=== PATIENT | female | born 1960 | race Caucasian/White ===

== ENCOUNTER 2020-09-21 14:34 | Emergency (ER) | payer SELFPAY ==
[~2020-09-21] VITALS: Ht 154.9 cm; Wt 75.3 kg
[2020-09-21 14:51] VITALS: BP 121/78
[2020-09-21] MEDS ORDERED: ACETAMINOPHEN EXTRA STRENGTH 500 MG TAB PO ONE (15:45)
[2020-09-21] MEDS ORDERED: ACETAMINOPHEN EXTRA STRENGTH 500 MG TAB ONE (15:49)
--- NOTE | 2020-09-21 15:55 | NUR ---
novel covid swab collected and sent to the lab.
[2020-09-21 16:01] VITALS: BP 122/78
--- NOTE | 2020-09-21 16:01 | NUR ---
Patient discharged with v/s stable. Written and verbal after care instructions given and explained. Patient verbalized understanding. Ambulatory with steady gait. All questions addressed prior to discharge. Advised to follow up with PMD.
--- NOTE | 2020-09-22 19:58 | NUR ---
LAB CALLED TO INFORM OF COVID + STATUS AT THIS TIME.
== END 2020-09-21 16:01 | disposition home or self-care (01) ==
LOC: MED 14:34
DX: R06.02 Shortness of breath (principal); Z20.828 Contact with and (suspected) exposure to other viral communicable diseases; J45.909 Unspecified asthma, uncomplicated
CPT/HCPCS: 99283; U0003